=== PATIENT | male | born 1950 | race Caucasian/White ===

== ENCOUNTER 2018-08-25 14:46 | Outpatient (RCR) | payer OTHER ==
[~2018-08-25 14:46] MED LIST: 00186-0370-20 IH; ACETAZOLAMIDE250 MG PO; ALAVERT10 M1 PO; ALBUTEROL0.09 MG/A1 IH; ALEVE220 MG PO; ANTI-DIARRHEAL2 MG PO; ASMANEX TW0.22 MG/A1 IH; ASPIR-LOW81 MG PO; ASPIRIN 32325 MG/TAB PO; ASPIRIN E.C. 8181 MG PO; ATOXIMETIN-B1 CAP PO; BUPROPION HCL100 MG PO; BUPROPION100 MG PO; CALCIUM CARBONATE; CALCIUM1 CAP PO; CARVEDILOL25 MG PO; CENTRUM SILVER1 TA1 PO; COREG 25MG25 MG/TAB PO; DIAMOX 250MG250 MG PO; DIAMOX SEQUELS500 M1 PO; DIGOXIN0.25 MG PO; EFFIENT10 MG PO; ENALAPRIL2.5 MG PO; EPA FISH OIL1000 MG PO; FLONASEALLERGY NS; FORADIL IH; GEMCOR600 MG PO; IMODIUM 2MG CAPS2 MG PO; LANOXIN 0.25M0.25 MG PO; LASIX 20MG TABL20 MG PO; LASIX20 MG PO; MASON NATURAL500 MG PO; MULTIPLE VITAMI1 TAB PO; NIACIN500 M3 PO; NIACIN500 MG PO; OMEGA 31000 MG; OMEPRAZOLE20 MG PO; OXYGEN; PLAVIX 75MG TAB75 MG PO; PRADAXA 150MG150 MG PO; PRAVACHOL80 MG PO; PRILOSEC 20MG20 MG PO; PROVENTIL0.09 MG/A1 IH; SALINE NASAL SP45 ML NS; SIMVASTATIN20 MG PO; SPIRIVA INH IH; SPIRIVA18 MCG IH; THEO-24400 MG PO; THEODUR 200MG; TUMS 500500 MG PO; TYLENOL 325MG325 MG PO; TYLENOL 500MG500 MG PO; TYLENOL ARTHRI650 M1 PO; VASOTEC 10M10 MG/TAB PO; VITAMIN D31000 I1 PO; VITAMIND3 5000; ZANTAC 150MG T150 MG PO; ZOCOR 20MG20 MG PO
== END 2018-11-23 | disposition still patient (30) ==
LOC: WSOH
DX: S00.83XA Contusion of other part of head, initial encounter (principal); S50.11XA Contusion of right forearm, initial encounter; S60.012A Contusion of left thumb without damage to nail, initial encounter; S80.12XA Contusion of left lower leg, initial encounter; W01.190A Fall on same level from slipping, tripping and stumbling with subsequent striking against furniture, initial encounter; Y92.214 College as the place of occurrence of the external cause; Y93.E5 Activity, floor mopping and cleaning; Y99.0 Civilian activity done for income or pay

== ENCOUNTER 2020-11-13 10:30 | Day surgery (SDC) | payer BC ==
[2020-11-13] VITALS (12 sets, daily range): BP systolic 143–174; BP diastolic 60–76; PULSE 70–77; TEMP 98.8
[~2020-11-13] VITALS: Ht 180.3 cm; Wt 116.0 kg
[~2020-11-13 10:30] MED LIST changes: -ASPIRIN 32325 MG/TAB PO; +ASPIRIN 81M81 MG/TA2 PO; -TYLENOL ARTHRI650 M1 PO
[2020-11-13 11:22] LABS: HEMOGLOBIN 11.3 g/dl (13.5-18.0); MEAN CELL VOLUME 101 fl (80.0-100.0); MEAN CORPUSCULAR HEMOGLOBIN 33 pg (27.0-31.0); MEAN CORPUSCULAR HGB CONC 33 g/dl (33.0-37.0); MEAN PLATELET VOLUME 9.1 fl (7.4-10.4); PLATELET COUNT 223 K/mm3 (130-400); RED BLOOD COUNT 3.38 M/mm3 (4.20-5.60); REDCELL DISTRIBUTION WIDTH-CV 13.2 % (11.5-14.5)
[2020-11-13 11:23] LABS: HEMATOCRIT 34.1 % (42.0-52.0)
[2020-11-13 11:39] LABS: CALCIUM 9.8 mg/dL (8.4-10.2); CREATININE, serum 0.9 (0.66-1.25); POTASSIUM 4.1 mmol/L (3.4-5.0)
[2020-11-13] MEDS ORDERED: NORVASC 10MG10 MG PO (11:42)
[2020-11-13] MEDS ORDERED: WELLBUTRIN 100100 MG PO (11:45)
[2020-11-13] MEDS ORDERED: TUMS500 MG PO (11:46)
[2020-11-13] MEDS ORDERED: COREG 25MG25 MG/TAB PO (11:46)
[2020-11-13] MEDS ORDERED: MASON NATURAL500 MG PO (11:47)
[2020-11-13] MEDS ORDERED: PRADAXA 150MG150 MG PO (11:47)
[2020-11-13] MEDS ORDERED: LANOXIN 0.25M0.25 MG PO (11:48)
[2020-11-13] MEDS ORDERED: VASOTEC20 MG PO (11:48)
[2020-11-13] MEDS ORDERED: PEPCID AC 10MG10 MG PO (11:49)
[2020-11-13] MEDS ORDERED: LASIX 20MG TABL20 MG PO (11:50)
[2020-11-13] MEDS ORDERED: EPA FISH OIL1 SGL PO (11:50)
[2020-11-13] MEDS ORDERED: DUO-KAPS1 CAP PO (11:51)
[2020-11-13] MEDS ORDERED: IMODIUM 2MG CAPS2 MG PO (11:51)
[2020-11-13] MEDS ORDERED: VITAMIN FLUSH-F1 CAP PO (11:52)
[2020-11-13] MEDS ORDERED: OXYGEN (11:52)
[2020-11-13] MEDS ORDERED: PRAVACHOL80 MG PO (11:53)
[2020-11-13] MEDS ORDERED: SPIRIVA RE2.5 MCG/Ac IH (11:53)
[2020-11-13] MEDS ORDERED: UNIPHYL 400MG400 MG PO (11:54)
[2020-11-13] MEDS ORDERED: NASACORT OTC NS (11:54)
[2020-11-13] MEDS ORDERED: CPAP (11:55)
[2020-11-13] MEDS ORDERED: VITAMIND3 5000 PO (11:55)
[2020-11-13 12:05] LABS: PROTHROMBIN TIME 12.1 SECONDS (9.7-12.8)
[2020-11-13 12:06] LABS: INR 1.1 (0.8-3.0); PARTIAL THROMBOPLASTIN TIME 35.8 SECONDS (26.0-37.0)
--- NOTE | 2020-11-13 12:36 | NUR ---
SEE MERGE DOCUMENTATION FOR MEDICATION ADMINISTRATION AND INTRA/POST PROCEDURE SEDATION ASSESSMENTS.
--- NOTE | 2020-11-13 16:10 | NUR ---
Discharge instructions given to pt.pt verbalizes understanding.INt removed,catheter tip intact.
--- NOTE | 2020-11-13 16:10 | NUR ---
All air removed rom band in 2-3 ml incrimants.Dressing applied observed clean,dry,and intact.
--- NOTE | 2020-11-13 16:14 | NUR ---
Report to Stan blackman
== END 2020-11-20 17:20 ==
LOC: COL.CAR 10:30
PROVIDERS: Internal Medicine Cardiovascular Disease
DX: I25.10 Atherosclerotic heart disease of native coronary artery without angina pectoris (principal); I48.0 Paroxysmal atrial fibrillation; I45.10 Unspecified right bundle-branch block; I11.0 Hypertensive heart disease with heart failure; I50.30 Unspecified diastolic (congestive) heart failure; I73.9 Peripheral vascular disease, unspecified; R94.39 Abnormal result of other cardiovascular function study; E78.5 Hyperlipidemia, unspecified; G47.33 Obstructive sleep apnea (adult) (pediatric); K21.9 Gastro-esophageal reflux disease without esophagitis; F32.9 Major depressive disorder, single episode, unspecified; Z95.1 Presence of aortocoronary bypass graft; Z20.822 Contact with and (suspected) exposure to COVID-19; Z99.89 Dependence on other enabling machines and devices
CPT/HCPCS: C1769; J1644; J2250; J3010; Q9967